=== PATIENT | female | born 1975 | race Caucasian/White ===

== ENCOUNTER → 2023-08-08 09:04 | Outpatient (CLI) | payer OTHER, SELFPAY ==
--- NOTE | 2023-08-08 09:30 | DI.CT.S_ITS ---
PROCEDURE: CT CHEST W CON INDICATIONS: incidental lung mass (right lobe) on CXR, hx of tobacco use TECHNIQUE: After the administration of intravenous contrast, 5 mm thick sections acquired from the pulmonary apices to the posterior costophrenic angles. 1 mm axial lung, 5 mm thick coronal and sagittal reformats and 7 mm axial MIP were acquired. For radiation dose reduction, the following was used: automated exposure control, adjustment of mA and/or kV according to patient size. COMPARISON: Outside Film, CT, CT ABDOMEN PELVIS WITH CONTRAST, 10/20/2022, 2:46. [facility], RG, XR CXR 1V, 07/13/2023, 10:33. FINDINGS: Image quality: Diagnostic. Lower Neck: No enlarged lymph nodes. Thyroid: No thyroid nodules which require sonographic follow up, per consensus guidelines. Axillae: No enlarged lymph nodes. Chest Wall: Unremarkable. Bones: Unremarkable. Lungs and Pleura: The nodular density seen on the chest x-ray is most likely caused by nipple shadow. There is 2 mm nodule in the right lower lobe (series 3 image 213). No focal infiltrate or consolidation. No pneumothorax or pleural effusions. Heart: Heart size is normal. No pericardial effusion. Thoracic Vessels: The aorta and pulmonary arteries demonstrate normal size. Mediastinum and Makayla: No enlarged lymph nodes. Esophagus: No wall thickening. Small hiatal hernia. Upper Abdomen: Cholecystectomy. Gastric bypass. Visualized upper abdomen solid organs and bowel loops appear normal. IMPRESSION: 1. No suspicious pulmonary nodule to correlate with the radiodensity seen on the x-ray in the right lower lobe. The nodular density seen on chest x-ray in the right lower lobe is probably caused by an artifact such the nipple shadow. 2. There is a 2 mm nodule in the right middle lobe. 3. Small hiatal hernia. Fleischner Society criteria for SOLID lung nodule followup. Nodule size (mm)Low-risk patientHigh-risk patient?4No follow-up neededFollow-up at 12 mo; if no change, no further follow-up>[id number] CT at 12 mo; if no change, no further follow-up needed.Initial follow-up CT at 6-12 mo, then 18-24 mo if no change. >6-8Initial follow-up CT at 6-12 mo, then 18-24 mo if no change. Initial follow-up CT at 3-6 mo, then 9-12 mo and 24 mo if no change. >8Follow-up CT at 3, 9, 24 mo. Or PET and/or biopsy.Same as for low-risk pts. Dictated by: Hilda Cast M.D. on 08/08/2023 at 10:09 Approved by: Hilda Cast M.D. on 08/08/2023 at 21:12
== END ==
PROVIDERS: PCP Family Medicine; Referring Provider Family Medicine; Visit Provider Family Medicine
DX: R91.8 Other nonspecific abnormal finding of lung field (principal); K44.9 Diaphragmatic hernia without obstruction or gangrene
CPT/HCPCS: 71260; Q9967

== ENCOUNTER → 2023-08-10 09:46 | Outpatient (CLI) | payer OTHER, SELFPAY ==
[2023-08-10 10:54] LABS: HEMOLYSIS < 15 (0-50); Iron 27 ug/dL (37-170)
[2023-08-10 10:57] LABS: Calcium 10.1 mg/dL (8.4-10.2)
[2023-08-10 11:06] LABS: Percent Iron Saturation 6 % (15-50); Total Iron Binding Capacity 477 ug/dL (265-497); Transferrin 413 mg/dL (206-381)
[2023-08-10 11:31] LABS: Ferritin 6 ng/mL (6-137)
[2023-08-10 12:02] LABS: Folate 3.2 ng/mL (2.76-20.0); Vitamin B12 434 pg/mL (239-931)
[2023-08-12 09:47] LABS: Calcium 9.9 mg/dL (8.7-10.2); Parathyroid Hormone, Intact 48 pg/mL (15-65)
[2023-08-18 09:15] LABS: 1,25-Dihydroxy, Vitamin D-2 <10 pg/mL (.)
== END ==
PROVIDERS: PCP Family Medicine; Referring Provider Family Medicine; Visit Provider Family Medicine
DX: R00.0 Tachycardia, unspecified (principal); Z98.84 Bariatric surgery status
CPT/HCPCS: 36415; 82310; 82607; 82652; 82728; 82746; 83540; 83550; 83970; 84443

== ENCOUNTER → 2023-08-12 13:05 | Outpatient (CLI) | payer OTHER, SELFPAY ==
[2023-08-12 16:01] LABS: Calcium 24 Hour Urine 117 mg/day (100-300); Calcium Urine Random 3.2 mg/dL; Collection Time Urine 24 Hours; Total Volume Urine 3650 mL
== END ==
LOC: LAB 13:05
PROVIDERS: PCP Family Medicine; Referring Provider Family Medicine; Visit Provider Family Medicine
DX: Z98.84 Bariatric surgery status (principal)
CPT/HCPCS: 82340

== ENCOUNTER → 2023-08-17 14:56 | Outpatient (CLI) | payer OTHER, SELFPAY ==
[2023-08-17 15:26] LABS: Appearance Urine UA CLEAR; Bilirubin Urine UA NEGATIVE (NEGATIVE); Color Urine UA YELLOW; Glucose Urine UA NEGATIVE (Negative); Ketones Urine UA NEGATIVE (NEGATIVE); Leukocyte Esterase Urine UA 3+ (NEGATIVE); Nitrite Urine UA NEGATIVE (Negative); Occult Blood Urine UA 1+ (Negative); Protein Urine UA NEGATIVE (Negative); Specific Gravity Urine UA <=1.005 (1.000-1.035); Urobilinogen Urine UA 0.2 E.U./dL (0.2)
[2023-08-17 15:35] LABS: Hemoglobin A1C% w Est Avg Glu 5.5 % (4.0-6.0)
[2023-08-17 15:38] LABS: Add Manual Diff / Slide Review NO; Basophils Absolute Auto 100 /uL (0-100); Basophils Percent Auto 1.3 % (0-2); Eosinophils Absolute Auto 700 /uL (0-450); Eosinophils Percent Auto 8.4 % (2-4); Hematocrit 34.2 % (36-46); Hemoglobin 10.5 g/dL (12.0-16.0); Lymphocytes Absolute Auto 3100 /uL (1100-4500); Lymphocytes Percent Auto 37.2 % (25-40); Mean Corpuscular HGB Conc 30.9 % (30-36); Mean Corpuscular Hemoglobin 19.9 PG (26-34); Mean Corpuscular Volume 64.5 fL (80-100); Monocytes Absolute Auto 700 /uL (0-900); Monocytes Percent Auto 8.8 % (3-14); Neutrophils Absolute Auto 3700 /uL (1500-7000); Neutrophils Percent Auto 44.3 % (50-75); Platelet Count 531 X10^3/uL (150-400); Red Blood Cell Count 5.29 X10^6/uL (4.0-5.2); Red Cell Distribution Width 19.3 % (11.6-14.8); White Blood Cell Count 8.3 X10^3/uL (4.5-11.0)
[2023-08-17 16:21] LABS: pH Urine UA 6.5 (4.5-8.0)
[2023-08-17 16:22] LABS: Bacteria Urine Moderate (10-30); Culture Indicated Urine Specimen Cultured; RBC Urine 0-1/HPF (0-5/HPF); Squamous Epithelial Cell Urine 5-10 /HPF (0-5/HPF); Urine Volume 10mL (spun); WBC Urine 5-10/HPF (0-5/HPF)
[2023-08-17 16:32] LABS: Microcytosis 1+
[2023-08-17 16:54] LABS: Ferritin 6 ng/mL (6-137)
== END ==
PROVIDERS: PCP Family Medicine; Referring Provider Family Medicine; Visit Provider Family Medicine
DX: Z98.84 Bariatric surgery status (principal); R35.89 Other polyuria; R00.0 Tachycardia, unspecified; R68.89 Other general symptoms and signs
CPT/HCPCS: 36415; 81001; 82728; 83036; 85025; 87077; 87086; 87186